=== PATIENT | male | born 1950 | race Caucasian/White ===

== ENCOUNTER 2021-01-27 18:47 | Emergency (ER) | payer MEDICARE, OTHER ==
[~2021-01-27] VITALS: Ht 172.7 cm; Wt 81.8 kg
[2021-01-27 18:53] VITALS: Ht 172.7 cm; Wt 81.8 kg
[2021-01-27 21:05] VITALS: BP 121/81
== END 2021-01-27 21:06 | disposition home or self-care (01) ==
LOC: D.ER 18:47
DX: S42.001A Fracture of unspecified part of right clavicle, initial encounter for closed fracture (principal); I10 Essential (primary) hypertension; V86.55XA Driver of 3- or 4- wheeled all-terrain vehicle (ATV) injured in nontraffic accident, initial encounter; Y93.9 Activity, unspecified; Y92.9 Unspecified place or not applicable